=== PATIENT | female | born 1975 | race Two or more races ===

== ENCOUNTER 2022-01-22 16:34 | Emergency (ER) | payer OTHER ==
[~2022-01-22] VITALS: Ht 160 cm; Wt 64.0 kg
[2022-01-22] MEDS ORDERED: traMADol HCL 50 MG TAB PO ONE (17:30)
[2022-01-22] MEDS ORDERED: ONDANSETRON ODT 4 MG TAB PO ONE (17:30)
[2022-01-22] MEDS ORDERED: LORazepam 0.5 MG TAB PO ONE (18:00)
[2022-01-22] MEDS ORDERED: TRAM-297 PO (20:41)
[2022-01-22 21:13] VITALS: BP 121/76
== END 2022-01-22 21:13 | disposition home or self-care (01) ==
LOC: ER 16:34
DX: S16.1XXA Strain of muscle, fascia and tendon at neck level, initial encounter (principal); S09.90XA Unspecified injury of head, initial encounter; Z88.0 Allergy status to penicillin; V43.52XA Car driver injured in collision with other type car in traffic accident, initial encounter; Y93.89 Activity, other specified; Y92.410 Unspecified street and highway as the place of occurrence of the external cause; Y99.8 Other external cause status
CPT/HCPCS: 70450; 72125